=== PATIENT | male | born 1950 | race African-American/Black ===

== ENCOUNTER 2017-01-01 12:57 | Emergency (ER) | payer MEDICARE ==
[~2017-01-01] VITALS: Ht 177.8 cm; Wt 80.6 kg
[2017-01-01 13:41] LABS: BASOPHILS % (AUTO) 0 % (0-2); EOSINOPHILS # (AUTO) 0.1 10^3uL; EOSINOPHILS % (AUTO) 2 % (0-4); LYMPHOCYTES # (AUTO) 1.8 X10^3; MEAN CORPUSCULAR HEMOGLOBIN 32.7 PG (26.0-34.0); MEAN CORPUSCULAR HGB CONC 34.6 g/dL (31.0-37.0); MEAN CORPUSCULAR VOLUME 95 FL (80-100); MEAN PLATELET VOLUME 9.6 FL (6.0-9.5); MONOCYTES # (AUTO) 0.5 X10^3; MONOCYTES % (AUTO) 11 % (3-11); NEUTROPHILS # (AUTO) 2.1 X10^3; NEUTROPHILS % (AUTO) 47 % (51-67); PLATELET COUNT 120 10^3uL (150-450); WHITE BLOOD COUNT 4.57 10^3uL (4.0-11.0)
--- NOTE | 2017-01-01 13:45 | NUR ---
US currently in another tx room. US will contact ER when finished.
[2017-01-01 13:50] LABS: ALBUMIN 4.1 g/dL (3.4-5.0); ANION GAP 16.1 MEQ/L (3-15); TOTAL PROTEIN 7.3 g/dL (6.4-8.5)
[2017-01-01] MEDS ORDERED: ENOXAPARIN 80 MG/0.8 ML (LOVENOX) SYR SC ONE (15:55)
[2017-01-01 16:45] VITALS: BP 102/65
== END 2017-01-01 16:46 | disposition home or self-care (01) ==
LOC: ED 13:04
DX: I82.432 Acute embolism and thrombosis of left popliteal vein (principal); I82.442 Acute embolism and thrombosis of left tibial vein; I82.492 Acute embolism and thrombosis of other specified deep vein of left lower extremity
CPT/HCPCS: 36415; 80053; 85025; 85610; 93971; 96372; 99282; J1650; 99283